=== PATIENT | male | born 1980 ===

== ENCOUNTER 2023-11-05 06:06 | Day surgery (SDC) | payer BC, SELFPAY ==
[2023-11-05] VITALS (9 sets, daily range): BP systolic 105–123; BP diastolic 62–76; BMI 26.0
[2023-11-05] MEDS: NORMOSOL-R 1000 IV (06:54)
[2023-11-05] MEDS: TYLENOL 1000 MG PO (06:54)
[2023-11-05] MEDS: CELEBREX 200 MG PO (06:54)
--- NOTE | 2023-11-05 08:58 | W.IMMPOSTOP ---
Surgical Immed Post Op Note
-
Primary Surgeon: Nakul West MD
Assisting Surgeon: None
Pre-op Diagnosis: Anal fistula
Post-op Diagnosis: Anal fistula
Procedure Performed: Exam under anesthesia, intersphincteric fistulotomy
Anesthesia Type: Sedation, then general
Specimen / Cultures: None
Estimated Blood Loss: 2 mL
Complications: After positioning but prior to prepping, patient had laryngospasm and desaturation; patient was placed back on the stretcher and facemask was placed with jaw thrust and saturation improved; no complications suffered; length of
desaturation less than a few minutes; anesthesia decided to intubate for the procedure
Operative Findings: Identified the external opening in the left anterior position, nearly healed; using hydrogen peroxide, identified the internal opening at the level of the dentate line and placed a probe through the fistula; minimal internal
sphincter was palpated and fistulotomy was performed; probed to the external opening again and discovered a tract just deep to internal sphincter; was able to place a probe through this and the internal opening was at the same location at the level
of the dentate line; only about 1 cm of internal sphincter was involved; therefore, performed completion fistulotomy; Surgicel was placed in the anal canal prophylactically and Dibucaine applied to the external portion of the wound
--- NOTE | 2023-11-05 09:02 | OR.RPT ---
Operative Report
Operative Report
DATE OF OPERATION: 11/05/2023
SURGEON: Nakul West MD
PREOPERATIVE DIAGNOSIS: Anal fistula
POSTOPERATIVE DIAGNOSIS: Intersphincteric anal fistula
OPERATION: Exam under anesthesia, intersphincteric fistulotomy, bilateral pudendal nerve block
ASSISTANTS:
1. None
ANESTHESIA: MAC, converted to general
ESTIMATED BLOOD LOSS: 2 mL
FINDINGS:
1. Length of anal canal about 4-5 cm
2. Left anterior anal fistula, external opening about 1.0 cm from anal verge; internal opening at dentate line; only 1 cm of internal sphincter muscle involved; performed fistulotomy
SPECIMENS:
1. None
DRAINS: None
COMPLICATIONS: Once sedation started and patient in prone position, patient possible had laryngospasm with desaturation; patient was flipped and placed on [id number] with improvement in saturation, episode lasted less than a few minutes;
anesthesia decided to perform the procedure under general
INDICATIONS: The patient is a 43-year-old male who presented to my office with symptoms of anal drainage intermittently over the course of years. On exam, an external opening was noted in the left anterior position with some white/yellow drainage.
Therefore, the patient was recommended to have surgery. The operation was discussed with the patient in detail, including the risks, benefits and alternatives. Risks described included, but not limited to bleeding, infection, urinary retention,
damage to nearby structures such as the anal sphincter, fecal incontinence, anal stenosis and recurrence. The patient understood and agreed to proceed. The consent was signed and placed in the chart.
PROCEDURE IN DETAIL: The patient was taken to the operating room. The patient was then placed on the operating table in prone position. Sequential compression devices were placed bilaterally. Sedation was commenced without complication. Two seat
belts were secured around the legs and upper back. The buttocks were taped apart. The perineum was shaved. At this point, anesthesia noted the patient to having a decrease in end-tidal CO2 and oxygen saturation. The patient was immediately placed
back on the stretcher and [id number] was applied with jaw thrust. Within a few minutes, his saturation returned to normal and the patient was breathing without issue. After discussion with anesthesia, for the patient's safety, the decision was
made to complete the procedure under general anesthesia. General anesthesia was commenced and the patient was intubated without complication. He was placed back on the operating table in prone position. His buttocks were taped apart. The
perianal area was prepped and draped in the usual fashion. A time-out was then performed verifying the correct patient, procedure, operative site, positioning, and special equipment.
Local anesthesia used was a mixture of 60 mL of 0.25% Marcaine without epinephrine (with epinephrine was on backorder) and 0.6 mg of dexamethasone. 40 mL was injected perianally at the beginning of the case. The anorectal exam was performed
assessing all four quadrants of the anal canal using Hill-Ricks retractors in progressively increasing size. The external opening had nearly healed over and a punctate spot was noted in the left anterior position. No other pathology was noted
within the anal canal. With the smallest lacrimal probe, the external opening was able to be intubated. After probing with the small lacrimal probe, no internal opening was identified. Hydrogen peroxide was then injected into the external opening
using a 10 cc syringe with 18-gauge Angiocath. Hydrogen peroxide was noted to emanate from a spot at the dentate line immediately radial to the external opening. The lacrimal probe was introduced again and passed through the identified internal
opening at the level of the dentate line. Upon palpating the tract, minimal internal sphincter was noted. Therefore, I performed a fistulotomy using Bovie electrocautery. No internal sphincter was involved in this initial fistulotomy. The
external opening was then probed again to make sure no other branch points were noted. Another tract was noted slightly deeper to the first tract and exited at the same internal opening. The probe was passed through again. This time, the deeper
fistula tract involved about 1 cm of internal sphincter. Therefore, I performed a completion fistulotomy with electrocautery. The fistula tract was curetted. Hemostasis was achieved with electrocautery. The anal canal was irrigated and
hemostasis was confirmed. The remaining 20 mL of local were injected. 5 mL was injected bilaterally for a pudendal nerve block. 10 mL was injected around the surgical site and perianally. Hemostasis was reassessed once more using the small
Aldo-Ricks and was confirmed. Surgicel was placed in the operative site prophylactically. A pea-sized amount of Dibucaine was then applied to the external portion of the wound.
At this point, the procedure was complete. All needle, sponge and instrument counts were correct. The patient tolerated the procedure well and was transferred to the recovery room in stable condition with gauze dressing in place secured with silk
tape.
DICTATED BY: Nakul West MD
== END 2023-11-05 11:40 | disposition home or self-care (01) ==
LOC: SDS 06:06
PROVIDERS: ATTENDING PHYSICIAN Surgery
DX: K60.3 Anal fistula (principal)
CPT/HCPCS: 46280